=== PATIENT | male | born 1975 | race Caucasian/White ===

== ENCOUNTER 2022-01-13 19:18 | Emergency (ER) | payer SELFPAY ==
[~2022-01-13] VITALS: Ht 182.9 cm; Wt 191.0 kg
[2022-01-13 23:00] VITALS: BP 112/58
== END 2022-01-13 23:15 | disposition home or self-care (01) ==
LOC: ER 19:18
DX: F10.129 Alcohol abuse with intoxication, unspecified (principal); Y90.0 Blood alcohol level of less than 20 mg/100 ml
CPT/HCPCS: 93005; 99284